=== PATIENT | male | born 1965 | race American Indian/Alaskan Native ===

== ENCOUNTER 2020-08-16 15:31 | Emergency (ER) | payer MEDICAID ==
--- NOTE | 2020-08-16 16:10 | EDM.PDOC ---
ED HPI GENERAL MEDICAL PROBLEM - General Chief Complaint: Chest Pain Stated Complaint: BURNING IN CHEST Time Seen by Provider: 08/16/20 16:08 Source of Information: Reports: Patient, RN Notes Reviewed History Limitations: Reports: No Limitations - History of Present Illness INITIAL COMMENTS - FREE TEXT/NARRATIVE: 54-year-old gentleman presents emergency department with a complaint of burning chest pain, he states he has had burning chest pain on and off for the last month. He did call the nurses line today recommend report to the emergency department. He is very anxious and concerned. He describes the burning chest pain predominantly in the epigastric region he has not noticed any change with food but he has been using Tums a fair amount. He states he had a stress test last year per his report was negative chest pain Pain Score (Numeric/FACES): 7 - Related Data Allergies Allergy/AdvReac Type Severity Reaction Status Date / Time amitriptyline Allergy Cannot Verified 08/16/20 15:56 Remember hair dye Allergy Rash Uncoded 08/16/20 15:56 Home Meds: Home Meds fentaNYL [Fentanyl] 200 mcg TOP ASDIRECTED 06/06/14 [History] traMADol HCl [Ultram] 2 tab PO Q6H PRN 06/06/14 [History] Triamcinolone Acetonide [Kenalog 0.1% Crm] 1 appful TOP TID PRN 06/29/15 [History] Cyclobenzaprine [Flexeril] 10 mg PO TID PRN 08/16/20 [History] lisinopriL [Lisinopril] 10 mg PO BEDTIME 08/16/20 [History] Past Medical History Cardiovascular History: Reports: Hypertension Gastrointestinal History: Reports: Cholelithiasis, GERD, Pancreatitis, Other (See Below) Other Gastrointestinal History: hx of pyloric stenosis with repair Genitourinary History: Reports: Renal Calculus Neurological History: Reports: Head Trauma - Infectious Disease History Infectious Disease History: Reports: Chicken Pox, Shingles - Past Surgical History HEENT Surgical History: Reports: Naso-Sinus Surgery GI Surgical History: Reports: Appendectomy, Cholecystectomy, Colonoscopy Neurological Surgical History: Reports: Lumbar Spine, Spinal Fusion Social & Family History - Tobacco Use Tobacco Use Status *Q: Current Every Day Tobacco User Years of Tobacco use: 20 Packs/Tins Daily: 1 - Caffeine Use Caffeine Use: Reports: Coffee, Soda, Tea - Recreational Drug Use Recreational Drug Use: No ED ROS GENERAL - Review of Systems Review Of Systems: See Below Constitutional: Reports: No Symptoms HEENT: Reports: No Symptoms Respiratory: Reports: Shortness of Breath Cardiovascular: Reports: Chest Pain GI/Abdominal: Reports: No Symptoms : Reports: No Symptoms Psychiatric: Reports: Anxiety ED EXAM, GENERAL - Physical Exam Exam: See Below Exam Limited By: No Limitations General Appearance: Alert, WD/WN, No Apparent Distress Respiratory/Chest: No Respiratory Distress, Lungs Clear, Normal Breath Sounds, No Accessory Muscle Use, Chest Non-Tender Cardiovascular: Regular Rate, Rhythm, No Murmur GI/Abdominal: Soft, Non-Tender #1 Interpretation EKG Date: 08/16/20 Rhythm: NSR [place]: Normal P-Wave: Present QRS: Normal ST-T: Normal QT: Normal Comparison: NA - No Prior EKG Course - Vital Signs Last Recorded V/S: Last Vital Signs Temp 97.9 F 08/16/20 16:01 Pulse 94 08/16/20 16:57 Resp 13 08/16/20 16:57 BP 125/92 H 08/16/20 16:57 Pulse Ox 96 08/16/20 16:57 - Orders/Labs/Meds Orders: Active Orders 24 hr Category Date Time Status Cardiac Monitoring [RC] .As Directed Care 08/16/20 16:15 Active Chest 1V Frontal [CR] Stat Exams 08/16/20 16:16 Taken Labs: Laboratory Tests 08/16/20 08/16/20 08/16/20 Range/Units 16:26 16:26 17:15 WBC 12.6 H (4.5-11.0) K/uL RBC 5.09 (4.30-5.90) M/uL Hgb 15.5 H (12.0-15.0) g/dL Hct 44.2 (40.0-54.0) % MCV 87 (80-98) fL MCH 31 (27-31) pg MCHC 35 (32-36) % Plt Count 357 (150-400) K/uL Neut % (Auto) 68 H (36-66) % Lymph % (Auto) 20 L (24-44) % [place] % (Auto) 9 H (2-6) % Eos % (Auto) 3 (2-4) % Baso % (Auto) 0 (0-1) % Sodium 140 (140-148) mmol/L Potassium 4.3 (3.6-5.2) mmol/L Chloride 103 (100-108) mmol/L Carbon Dioxide 27 (21-32) mmol/L Anion Gap 10.0 (5.0-14.0) mmol/L BUN 11 (7-18) mg/dL Creatinine 1.0 (0.8-1.3) mg/dL Est Cr Clr Drug Dosing 88.90 mL/min Estimated GFR (MDRD) > 60 (>60) Glucose 116 H (74-106) mg/dL Calcium 10.0 (8.5-10.1) mg/dL Troponin I < 0.017 (0.000-0.056) ng/mL SARS CoV-2 RNA Rapid ELROY Negative Meds: Medications Discontinued Medications Generic Name Dose Route Start Last Admin Trade Name Freq PRN Reason Stop Dose Admin Aspirin 324 mg 08/16/20 16:15 08/16/20 16:28 Aspirin 81 Mg Tab.Chew PO 08/16/20 16:16 324 mg ONETIME ONE Administration Al Hydroxide/Mg Hydroxide 15 0 ml 08/16/20 16:16 08/16/20 16:30 ml/ Lidocaine HCl 15 ml PO 08/16/20 16:17 30 ml ONETIME ONE Administration Departure - Departure Time of Disposition: 17:48 Disposition: Home, Self-Care 01 Condition: Fair Clinical Impression: Epigastric pain Referrals: Luis Alberto De La Torre MD [Primary Care Provider] - Forms: ED Department Discharge Additional Instructions: Continue with the [id number] omeprazole, recommend follow-up with primary care for further evaluation, call return to the emergency department worsening of symptoms Sepsis Event Note (ED) - Evaluation Sepsis Screening Result: No Definite Risk - Focused Exam Vital Signs: Vital Signs Temp Pulse Resp BP Pulse Ox 08/16/20 16:57 94 13 125/92 H 96 08/16/20 16:16 102 H 12 121/89 97 08/16/20 16:01 97.9 F 113 H 19 148/105 H 98 08/16/20 15:50 97.9 F 113 H 19 148/105 H 98 - My Orders Last 24 Hours: My Active Orders 08/16/20 16:15 Cardiac Monitoring [RC] .As Directed 08/16/20 16:16 Chest 1V Frontal [CR] Stat - Assessment/Plan Last 24 Hours: My Active Orders 08/16/20 16:15 Cardiac Monitoring [RC] .As Directed 08/16/20 16:16 Chest 1V Frontal [CR] Stat Plan: Assessment Acuity = acute Site and laterality = epigastric pain Etiology = suspicious for underlying gastroesophageal reflux disease Manifestations = none Location of injury = Home Lab values = WBC elevated 12.6 consistent leukocytosis of uncertain significance remainder CBC is unremarkable, BMP unremarkable troponin was negative EKG shows no acute ischemic signs chest x-ray I did review films myself I cannot appreciate any acute process, the official read from radiology is pending Plan I did review his lab work chest x-ray EKG results with him his Covid test is also negative he was significant relieved, recommend he try [id number] omeprazole follow-up with primary care may be prescription strength consider EGD This note was dictated using [employer] voice recognition software please call with any questions on syntax or grammar.
[2020-08-16] MEDS ORDERED: Aspirin 81 MG Tab.Chew PO ONE (16:15)
[2020-08-16] MEDS ORDERED: Alum Hydrox/Mag Hydrox/Simeth 15 ML, Lidocaine 2% 15 ML PO ONE ×2 (16:16)
[2020-08-16 16:58] VITALS: BP 125/92; PULSE 94
--- NOTE | 2020-08-20 09:10 | CR ---
CHEST: Portable 08/16/2020 at 4:53 PM CLINICAL HISTORY:Chest pain COMPARISON:None FINDINGS: The heart size, pulmonary vascularity and hilar structures are normal. No infiltrate effusion or pneumothorax is seen. IMPRESSION: No acute cardiopulmonary process.
== END 2020-08-16 18:10 | disposition home or self-care (01) ==
LOC: JP.ED 15:31
DX: R10.13 Epigastric pain (principal); K21.9 Gastro-esophageal reflux disease without esophagitis; I10 Essential (primary) hypertension; Z90.49 Acquired absence of other specified parts of digestive tract; Z20.822 Contact with and (suspected) exposure to COVID-19; Z72.0 Tobacco use; Z79.899 Other long term (current) drug therapy; Z91.048 Other nonmedicinal substance allergy status; Z88.8 Allergy status to other drugs, medicaments and biological substances
CPT/HCPCS: 36415; 71045; 80048; 84484; 85025; 87635; 99285; A9270; U0002